=== PATIENT | male | born 1940 | race Caucasian/White ===

== ENCOUNTER → 2016-06-15 | Outpatient (CLI) | payer MEDICARE, BC ==
[2016-06-15 14:05] LABS: Basophils % (A) 0 %; CHCM 33.3; Eosinophils # (A) 0.2 k/uL (0-0.7); Eosinophils % (A) 2 %; HCT 38.7 % (39.0-53.0); HDW 2.69; HGB 12.6 gm/dL (13.0-17.5); Luc # (Auto) 0.24; Luc % (Auto) 3; Lymphocytes # (A) 1.5 k/uL (1.0-4.8); Lymphocytes % (A) 20 %; MCH 32.4 pg (25.0-35.0); MCHC 32.6 g/dL (31.0-37.0); MCV 99.5 fL (80.0-100.0); Mean Platelet Volume 10.1; Monocytes # (A) 0.3 k/uL (0-1.0); Monocytes % (A) 5 %; Neutrophils # (A) 5.1 k/uL (1.3-7.7); Neutrophils % (A) 69 %; RBC 3.88 m/uL (4.30-5.90); RDW 13.2 % (11.5-15.5); WBC 7.4 k/uL (3.8-10.6); WBC (Perox) 7.53
[2016-06-15 14:20] LABS: Anion Gap 9 mmol/L; Blood Urea Nitrogen 16 mg/dL (9-20); Calcium 9.4 mg/dL (8.4-10.2); Carbon Dioxide 30 mmol/L (22-30); Chloride 101 mmol/L (98-107); Glucose 193 mg/dL (74-99); Non-African American GFR(MDRD) >60 (>60 ml/min/1.73 sqM); Potassium 5.1 mmol/L (3.5-5.1); Sodium 140 mmol/L (137-145)
[2016-06-15 14:54] LABS: Hemoglobin A1C 9.1 % (4.2-6.1)
[2016-06-15 17:02] LABS: Erythrocyte Sedimentation Rate 13 mm/hr (0-15)
== END | disposition home or self-care (01) ==
LOC: LABWHC1 12:57
PROVIDERS: ATTEND Internal Medicine Infectious Disease
DX: E11.65 Type 2 diabetes mellitus with hyperglycemia (principal)
CPT/HCPCS: 36415; 80048; 83036; 85025; 85652

== ENCOUNTER → 2017-01-02 | Outpatient (CLI) | payer MEDICARE, BC ==
[2017-01-02 17:01] LABS: CH 33.8; CHCM 32.8; HCT 37.2 % (39.0-53.0); HDW 2.46; HGB 12.1 gm/dL (13.0-17.5); MCH 33.9 pg (25.0-35.0); MCHC 32.7 g/dL (31.0-37.0); MCV 103.7 fL (80.0-100.0); Macrocytosis Slight; Mean Platelet Volume 9.7; RBC 3.58 m/uL (4.30-5.90); RDW 14.1 % (11.5-15.5); WBC 7.4 k/uL (3.8-10.6)
[2017-01-02 17:10] LABS: Prothrombin Time 10.5 sec (9.0-12.0)
== END | disposition home or self-care (01) ==
LOC: LABWHC1 15:55
PROVIDERS: ATTEND Radiology Diagnostic Radiology
DX: M54.5 Low back pain (principal); G89.29 Other chronic pain
CPT/HCPCS: 36415; 85027; 85610; 85730

== ENCOUNTER → 2017-07-18 | Outpatient (CLI) | payer MEDICARE, BC ==
--- NOTE | 2017-07-18 16:11 | CONS ---
CONSULTATION REASON FOR CONSULTATION: Consultation note for obstructive sleep apnea. HISTORY OF PRESENT ILLNESS: 77-year-old male patient, a long time CPAP for obstructive sleep apnea. He is coming in for evaluation. His CPAP machine is broken and currently the patient is using his CPAP machine which is set at a pressure of 7. I am unable to retrieve his old records. I think he had his sleep study many years back through our sleep center. He is symptomatic, he stops breathing and he snores very loud while off treatment. He goes to bed around 1:00 am, wakes up at 9 a.m. in the morning. He averages in 7-8 hours of sleep. He does very well while on CPAP machine however after the treatment he becomes somnolent and sleepy. His current Erie Score is at 9. He claims to have lost weight and currently is down to 210. No other complaints otherwise for now. PAST MEDICAL HISTORY: 1. Obstructive sleep apnea. 2. Hard of hearing. The patient has got on the left. 3. Hyperlipidemia. 4. Diabetes mellitus. 5. Coronary disease with MN. 6. Sick sinus syndrome. 7. Hypertension. 8. Degenerative arthritis involving the spine. 9. Chronic obstructive pulmonary disease. SURGICAL HISTORY: Includes cardiac catheterization, insertion of multiple stents, back surgery, neck surgery, cholecystectomy and cochlea implant. DRUG ALLERGIES: MULTIPLE AND THIS INCLUDES IODINE KEFLEX AND AMOXICILLIN AND CIPRO AND LYRICA. OUTPATIENT MEDICATION LIST: Includes Advair Diskus, fish oil, Lipitor,baby aspirin, Toprol, Glucotrol, metformin and Lipitor. He is also on insulin exact type is not known. SOCIAL HISTORY: The patient is a nonsmoker. No history of alcohol. No history of IV drugs. He is retired right now. FAMILY HISTORY: Positive for coronary artery disease and heart problems in the mother and father of some auto immune disease. Brother has unknown cancer, thyroid cancer also runs in the family. Mother has thyroid cancer. REVIEW OF SYSTEMS: 12-point review of system was done. He has excessive fatigue and sleepiness off the treatment. He has no insomnia. Has no choking or gasping for air in the middle of the night. Some restlessness in lower extremities. Wakes up with dry mouth. No sleepwalking or sleep talking. No anxiety or panic attacks. No palpitation. No heartburn. No claustrophobia. No sexual dysfunction. No difficulty with concentration and memory. PHYSICAL EXAMINATION: BP is 110/44, pulse 62, respirations 16, temperature 97.6. Saturation is 97% on room air. Neck size 19.5 inches. BMI 34. GENERAL APPEARANCE: Calm, comfortable in no acute distress. Head is atraumatic, normocephalic. Neck is short, supple, crowding of posterior pharynx. Mallampati class IV. There is no goiter or neck masses. LUNGS: Diminished breath sounds bilaterally. HEART: Sounds regular rate and rhythm. Normal S1, S2. No S3, S4. No murmurs. ABDOMEN: Soft. No organomegaly. No rebound tenderness or guarding. Skin is negative for any wounds or ulceration. EXTREMITIES: No edema. No cyanosis or clubbing. NEUROLOGIC: Alert and oriented x3. There is no focal neurological deficits. PSYCHIATRIC: Negative for anxiety or depression. IMPRESSION: 1. Obstructive sleep apnea. The patient is coming in for evaluation. His current CPAP machine is broken. Unable to locate his previous sleep study as far as his baseline PSG. 2. Chronic obstructive pulmonary disease. 3. Coronary artery disease. Previous coronary intervention and stenting. 4. Hyperlipidemia. 5. Hypertension. 6. Diabetes mellitus. 7. Sick sinus syndrome. 8. Cochlea implant with impaired hearing bilaterally. 9. Degenerative arthritis involving the spine. PLAN: 1. Proceed with a split night to establish the presence of sleep apnea and its severity and proceed with the treatment accordingly. 2. Encourage further weight loss. 3. Tight control of cardiovascular risk factors. 4. We will continue to follow. MMODL / IJN: [id number] /
== END | disposition home or self-care (01) ==
LOC: SLEEP 14:52
PROVIDERS: ATTEND Internal Medicine Critical Care Medicine
DX: G47.33 Obstructive sleep apnea (adult) (pediatric) (principal); J44.9 Chronic obstructive pulmonary disease, unspecified; I25.10 Atherosclerotic heart disease of native coronary artery without angina pectoris; E78.5 Hyperlipidemia, unspecified; I10 Essential (primary) hypertension; E11.9 Type 2 diabetes mellitus without complications; I49.5 Sick sinus syndrome; H91.93 Unspecified hearing loss, bilateral; M47.9 Spondylosis, unspecified; Z96.21 Cochlear implant status; Z90.49 Acquired absence of other specified parts of digestive tract; Z88.1 Allergy status to other antibiotic agents; Z88.0 Allergy status to penicillin; Z91.041 Radiographic dye allergy status; Z95.5 Presence of coronary angioplasty implant and graft; Z79.84 Long term (current) use of oral hypoglycemic drugs; Z79.899 Other long term (current) drug therapy; Z79.82 Long term (current) use of aspirin; Z79.4 Long term (current) use of insulin; Z99.89 Dependence on other enabling machines and devices
CPT/HCPCS: 99211

== ENCOUNTER → 2018-01-18 | Outpatient (CLI) | payer MEDICARE, BC ==
--- NOTE | 2018-01-18 16:30 | PN ---
PROGRESS NOTE DATE OF SERVICE: 01/18/2018 This patient is a 77-year-old gentleman who has been followed in the sleep center for treatment of obstructive sleep apnea-hypopnea syndrome. Recently the patient had a diagnostic sleep study and CPAP titration and one split night protocol. After that he received his CPAP unit. His sleep apnea is in the severe range. After starting to use CPAP, he feels better; he sleeps better and feels better during the day. I checked his CPAP unit. CPAP pressure is 10 cm of water. Usage is 29/30 nights for more than 4 hours. Average usage is 7.7 hours. CPAP pressure is 10 cm of water. Leak is acceptable at 11 L/minute. AHI for the last month is only 2.7. MEDICATIONS: 1. Gabapentin. 2. Metoprolol. 3. Aspirin. 4. Metformin. 5. Atorvastatin. 6. . 7. Warfarin. 8. Insulin. PHYSICAL EXAMINATION: GENERAL: A pleasant patient in no distress. VITAL SIGNS: BP 134/56, HR 64, RR 16, weight 213, temperature 98.0, oxygen saturation at room air 96%. HEENT: PERRLA, EOMI. Evaluation of oropharynx showed tongue protrudes midline. Extremely low position of soft palate. NECK: Supple. No JVD. Thyroid is not palpable. LUNGS: Clear to percussion and to auscultation. Good air exchange. No wheezing or rhonchi. HEART: S1, S2 regular. No murmurs, gallops or rubs. ABDOMEN: Obese. EXTREMITIES: No clubbing or cyanosis. ABORIGINAL EDUCATION WORKER COORDINATOR: Awake, alert, and oriented X3. Cranial nerves 2 to 7 intact. There is no fasciculation or atrophy. noted. No focal deficits observed. IMPRESSION: 1. Obstructive sleep apnea-hypopnea syndrome in severe range. The patient demonstrated great compliance with treatment, benefitting from treatment. 2. Obesity. 3. Coronary artery disease. 4. History of chronic obstructive pulmonary disease. 5. Diabetes mellitus. 6. Hyperlipidemia. 7. History of sick sinus syndrome. 8. Hypertension. 9. Impaired hearing. PLAN: 1. Patient will continue to use CPAP equipment every night for the whole night. 2. Losing weight. 3. Sleep hygiene with regular time in bed for at least 8 hours. 4. No driving if feeling any sleepiness. 5. We will maintain prescription for all necessary CPAP supplies. Thank you very much for allowing me to participate in the management of your patient. Sincerely, Bubba Christopher MD, PhD, FAASM Diplomat of [employer] Rep[employer]r of [facility] [place] RAFFI / LATA: [id number] /
== END | disposition home or self-care (01) ==
LOC: SLEEP 14:38
PROVIDERS: ATTEND Internal Medicine
DX: G47.33 Obstructive sleep apnea (adult) (pediatric) (principal); E66.9 Obesity, unspecified; I25.10 Atherosclerotic heart disease of native coronary artery without angina pectoris; J44.9 Chronic obstructive pulmonary disease, unspecified; E11.9 Type 2 diabetes mellitus without complications; E78.5 Hyperlipidemia, unspecified; I10 Essential (primary) hypertension; H91.90 Unspecified hearing loss, unspecified ear; Z86.79 Personal history of other diseases of the circulatory system; Z79.82 Long term (current) use of aspirin; Z79.84 Long term (current) use of oral hypoglycemic drugs; Z79.01 Long term (current) use of anticoagulants; Z79.4 Long term (current) use of insulin; Z99.89 Dependence on other enabling machines and devices

== ENCOUNTER → 2018-07-25 | Outpatient (CLI) | payer MEDICARE, BC ==
--- NOTE | 2018-07-25 15:53 | CT ---
EXAMINATION TYPE: CT cervical spine wo con DATE OF EXAM: 07/25/2018 COMPARISON: NONE HISTORY: Cervicalgia per order. Presurgical imaging. CT DLP: 854 mGycm. Automated Exposure Control for Dose Reduction was Utilized. TECHNIQUE: CT scan of the cervical spine is obtained without contrast, axial images are obtained, sa gittal and coronal reformatted images are also reviewed. FINDINGS: Cervical spine is visualized in its entirety from C1 through upper thoracic levels, demonst rates reversal of normal cervical curvature without evidence of acute fracture or dislocation. Preve rtebral soft tissue appears within normal limits. The C1-C2 articulation is within normal limits on the coronal images. Anterior fusion plate running from to superior C3 level with inferior screws posi tioned at level C6-C7 disc space is identified. There is vertical vertebral surgical hardware running from inferior C3 level through the inferior C6 vertebral body level. Some ossific fusion at this lev el is present. Large anterior spurring C2-C3 level is seen. There is moderate disc space narrowing C7 -T1 level. There is moderate disc space narrowing and anterior spurring at T1-T2 and T2-T3 levels. Po sterior burning or osteophyte superior C6 level sagittal image 38 and axial image 51 effaces anterior thecal sac. No large posterior osteophyte into spinal canal are otherwise identified. Review of axial images shows severe left greater than right bilateral neural foraminal narrowing due to uncovertebral facet spurring at C3-C4 level axial image 35. There is moderate to severe bilateral neural foraminal narrowing due to uncovertebral facet spurring at C4-C5 level axial image 42. There i s [id number] right right and mild left-sided neural foraminal narrowing at C5-C6 level due to u ncovertebral facet spurring. There is mild left-sided neural foraminal narrowing C6-C7 level axial im age 54 due to uncovertebral facet spurring. Bilateral uncovertebral facet spurring C7-T1 level is not ed axial image 64. Severe calcified plaque centered near bilateral carotid bulbs is present. There is background moderat e underlying emphysematous change. IMPRESSION: As above.
== END | disposition home or self-care (01) ==
LOC: RADCTMAIN 14:15
PROVIDERS: ATTEND Neurological Surgery
DX: M48.02 Spinal stenosis, cervical region (principal); M99.71 Connective tissue and disc stenosis of intervertebral foramina of cervical region
CPT/HCPCS: 72125

== ENCOUNTER → 2018-08-15 | Outpatient (CLI) | payer MEDICARE, BC ==
--- NOTE | 2018-08-15 16:05 | US ---
EXAMINATION TYPE: US carotid duplex BILAT DATE OF EXAM: 08/15/2018 COMPARISON: CT CLINICAL HISTORY: I65.29 Bilateral Carotid Stenosis. Calcifications seen on CT Large pt body habits, thick, short neck/ Difficult to scann EXAM MEASUREMENTS: RIGHT: Peak Systolic Velocity (PSV) cm/sec ----- Right CCA: 70.3 ----- Right ICA: 144.7 ----- Right ECA: 141.1 ICA/CCA ratio: 2.1 RIGHT: End Diastole cm/sec ----- Right CCA: 17.1 ----- Right ICA: 44.6 ----- Right ECA: 15.0 LEFT: Peak Systolic Velocity (PSV) cm/sec ----- Left CCA: 56.7 ----- Left ICA: 258.7 ----- Left ECA: 156.0 ICA/CCA ratio: 4.6 LEFT: End Diastole cm/sec ----- Left CCA: 12.5 ----- Left ICA: 52.8 ----- Left ECA: 9.0 VERTEBRALS (direction of flow): Right Vertebral: Antegrade Left Vertebral: Antegrade Rhythm: Normal Elevated velocities bilaterally, more on left side with abnormal ratio on left Grayscale, color Doppler, spectral Doppler imaging performed of the carotid arteries. Waveform analys is shows findings compatible with stenosis of the proximal internal carotid arteries bilaterally. IMPRESSION: Hemodynamic significant stenosis of the proximal internal carotid artery on the right co rresponding to what is likely 50-69% diameter reduction. Hemodynamic significant stenosis of the prox imal internal carotid artery on the left corresponding to what is likely approximately at least 60% d iameter reduction and possibly 70% diameter reduction by Doppler criteria, an indirect measurement of carotid stenosis, consider carotid CTA Criteria for Assigning % of Stenosis / Diameter reduction (Estimation based on the indirect measurements of the internal carotid artery velocities (ICA PSV). 1. Normal (no stenosis)=ICA PSV < 125 cm/s: ratio < 2.0: ICA EDV<40 cm/s. 2. Less than 50% stenosis=ICA PSV < 125 cm/s: ratio < 2.0: ICA EDV<40 cm/s. 3. 50 to 69% stenosis=ICA PSV of 125 to 230 cm/s: ration 2.0 ? 4.0: ICA EDV 40-100 cm/s. 4. Greater than 70% stenosis to near occlusion= ICA PSV > 230 cm/s: ratio > 4.0: ICA EDV > 100 cm/s. 5. Near occlusion= ICA PSV velocities may be low or undetectable: variable ratio and ICA EDV. 6. Total occlusion=unable to detect flow.
== END | disposition home or self-care (01) ==
LOC: RADUSWWP 15:05
PROVIDERS: ATTEND Family Medicine
DX: I65.23 Occlusion and stenosis of bilateral carotid arteries (principal)
CPT/HCPCS: 93880

== ENCOUNTER → 2018-10-05 | Day surgery (SDC) | payer MEDICARE, BC ==
[~2018-10-05] MED LIST: DIAZEPAM 5 MG TAB PO STA; HYDROcodone/APAP 5-325MG 1 EACH TAB PO PRN; PREMYELOGRAM MEDICATION REVIEW 1 EACH MISC PO NR
[2018-10-05 08:51] LABS: Mean Platelet Volume 8.8; Platelet Count 179 k/uL (150-450)
[2018-10-05 08:56] LABS: Prothrombin Time 10.9 sec (9.0-12.0)
[2018-10-05 09:16] VITALS: TEMP 97.5
--- NOTE | 2018-10-05 12:32 | CT ---
EXAMINATION TYPE: CT cervical spine w con DATE OF EXAM: 10/05/2018 COMPARISON: CT cervical spine July 25, 2018 HISTORY: Neck pain per order. CT DLP: 1376 mGycm. Automated Exposure Control for Dose Reduction was Utilized. TECHNIQUE: CT scan of the cervical spine is obtained after intrathecal injection of contrast, axial images are obtained, sagittal and coronal reformatted images are also reviewed. A total of 15 cc of O mnipaque 200 was injected into the lumbar spinal canal under fluoroscopic guidance. FINDINGS: There is successful contrast opacification of the cervical spinal canal. There is redemonst ration of reversal of normal cervical curvature. There is redemonstration of anterior fusion plate be ginning superior C3 level with inferior screws positioned at level of C6-C7 disc space. Vertical surg ical hardware redemonstrated inferior C3 level through the inferior C6 vertebra with some ossific fus ion. There is moderate spurring and disc space narrowing C7-T1 level extending in proper thoracic spi ne. Large anterior spur C2-C3 level redemonstrated. C1-C2 articulation on coronal images satisfactory . Some posterior spurring or bony formation effaces the anterior thecal sac at several levels along s ite of surgery. Axial images C2-C3 levels show calcified small disc protrusion mildly effacing the anterior thecal sa c, bilateral neural foramina are patent on axial image 33. Axial images at the C3-C4 level show posterior spurring effacing the anterior thecal sac up to ventra l surface of the spinal cord with advanced bilateral neural foraminal narrowing. Axial images at C4-C5 level show right paracentral spurring effacing the anterior thecal sac and mild to moderate left greater than right bilateral neural foraminal narrowing. Axial images at C5-C6 level which demonstrate large posterior spur efface the anterior thecal sac up to ventral surface of spinal cord axial image 52 series 5, there is mild bilateral neural foraminal n arrowing due to marginal spurring. Axial images at C6-C7 level show prominent left paracentral spur bony projection efface the anterior thecal sac of the ventral surface of spinal cord axial image 57 series 5 with mild left-sided neural foraminal narrowing due to marginal spurring. Axial images at C7-T1 level show right paracentral bony projection efface ventral thecal sac on image 69, bilateral neural foramina are patent. There is partial visualization of pacemaker wires in the left upper thorax. There is fairly severe ca lcified plaque at the level bilateral carotid bulbs. Background mild to moderate emphysematous change is redemonstrated. IMPRESSION: Improved visualization of structures with myelogram. Multilevel neural foraminal narrowi ng redemonstrated not as pronounced as suspected on myelogram study. Overall no significant change fr om recent CT.
--- NOTE | 2018-10-05 12:36 | FL ---
EXAMINATION TYPE: FL myelogram cervical DATE OF EXAM: 10/05/2018 CLINICAL HISTORY: Cervicalgia. TECHNIQUE: Fluoroscopic assisted myelogram. A total of 3.37 minutes of fluoroscopic time was utilized during procedure. 3 spot images are saved. COMPARISON: None. FINDINGS: Fluoroscopic guidance was provided during lumbar spine myelogram procedure performed by Dr Paxton Coleman. Procedure was explained to patient. Benefits, risks, and alternatives were discussed. Inform ed consent was obtained. Overlying skin is cleansed with Betadine. Lidocaine is used as local anesthetic. Patient has a track superintendent ior interpedicular rods and screws L1-L4 level bilaterally. First attempt was unsuccessful in obtaini ng access to spinal canal. Second site L3 level using slight paraspinal approach is successful with s naveen needle. At this 15 cc of Isovue M2 100 instilled into the spinal canal. Needle is withdrawn. X- ray documents successful contrast opacification. Patient put into reverse Trendelenburg position with flexed head to get contrast to move cranially to cervical level. Patient tolerated procedure well without any immediate complication. Patient taken to CAT scan. This report will be dictated separately. Vital signs monitored before during and after procedure. Patient stayed for short time after procedure and CT scan and subsequently discharged home in stable conditio n. IMPRESSION: As Above. Successful fluoroscopic assisted myelogram for CT study.
[2018-10-05 16:34] VITALS: RESP 16
[2018-10-05 16:53] VITALS: BP 151/79; PULSE 60
== END ==
LOC: RADPROMAIN 08:12
PROVIDERS: ATTEND Neurological Surgery
DX: M48.02 Spinal stenosis, cervical region (principal); M50.21 Other cervical disc displacement, high cervical region; Z98.1 Arthrodesis status
CPT/HCPCS: 82947; 85049; 85610; 36415; 62302; 72126; Q9966; 62284

== ENCOUNTER 2020-08-28 07:03 | Day surgery (SDC) | payer BC, MEDICARE ==
[2020-08-25 14:13] VITALS: BMI 31.3
[~2020-08-28 07:03] MED LIST changes: -DIAZEPAM 5 MG TAB PO STA; -HYDROcodone/APAP 5-325MG 1 EACH TAB PO PRN; +LACTATED RINGERS 1,000 ML IV SCH; -PREMYELOGRAM MEDICATION REVIEW 1 EACH MISC PO NR
[2020-08-28 07:40] VITALS: RESP 16; TEMP 98
[2020-08-28] MEDS ORDERED: LIDOCAINE 1% (10MG/ML) FOR IV START INTRADERMA ONE (07:44)
[2020-08-28 07:53] LABS: Glucose,Whole Blood 83 mg/dL (75-99)
[2020-08-28] MEDS ORDERED: LIDOCAINE 1% INJ 10MG/ML (20 ML MDV) ONE (07:54)
[2020-08-28] MEDS ORDERED: PROPOFOL 10 MG/ML 20 ML VIAL IV ONE (07:54)
--- NOTE | 2020-08-28 08:08 | P.GSHP ---
History of Present Illness H&P Date: 08/28/20 Chief Complaint: Rectal bleeding This 80-year-old male who's had some complaints of rectal bleeding. Patient has known hemorrhoids. He presents today for colonoscopy. Past Medical History Past Medical History: Coronary Artery Disease (CAD), Chest Pain / Angina, COPD, Diabetes Mellitus, GERD/Reflux, Hearing Disorder / Deafness, Hyperlipidemia, Myocardial Infarction ([place]), Osteoarthritis (OA), Skin Disorder, Sleep Apnea/CPAP/BIPAP Additional Past Medical History / Comment(s): arrhythmia, diverticulosis, hiatal hernia, psoriasis, cochlear implants, numbness in hands with carpal tunnel , has cpap, due to neck surgery has limited movement of neck Last Myocardial Infarction Date:: 1992 History of Any Multi-Drug Resistant Organisms: None Reported Past Surgical History: Appendectomy, Back Surgery, Cholecystectomy, Heart Catheterization With Stent, Orthopedic Surgery, Pacemaker Additional Past Surgical History / Comment(s): 8 stents, angioplasty, cataracts,laser surgery eyes, neck surgery-has plate, spinal rods inserted, rt arm surgery Past Anesthesia/Blood Transfusion Reactions: No Reported Reaction Date of Last Stent Placement:: 2014 Type of Cardiac Device: Permanent Pacemaker Device Placement Date:: 2012 Smoking Status: Never smoker - Past Family History Mother Family Medical History: Cancer Medications and Allergies Home Medications Medication Instructions Recorded Confirmed Type Fish Oil/Dha/Epa [Fish Oil 1,200 1 tab PO DAILY 05/28/14 08/25/20 History mg Fish Oil] Fluticasone/Salmeterol [Advair 1 puff INHALATION HS 05/28/14 08/25/20 History 500-50 Diskus] Gabapentin 600 mg PO BID 05/28/14 08/25/20 History Metoprolol Succinate [Toprol XL] 50 mg PO BID 05/28/14 08/25/20 History glipiZIDE [Glucotrol] 5 mg PO DAILY 05/28/14 08/25/20 History Atorvastatin [Lipitor] 80 mg PO HS #90 tab 12/09/14 08/25/20 Rx Nitroglycerin Sl Tabs [Nitrostat] 0.4 mg SUBLINGUAL Q5M PRN #25 tab 12/09/14 08/25/20 Rx metFORMIN HCL [Glucophage] 850 mg PO BID #0 12/09/14 08/25/20 Rx Warfarin [Coumadin] 5 mg PO MOTUWEFRSA 09/26/18 08/25/20 History diphenhydrAMINE [Benadryl] 50 mg PO DIRECTED PRN 09/26/18 08/25/20 History predniSONE 50 mg PO DIRECTED PRN 09/26/18 08/25/20 History Albuterol Nebulized [Ventolin 2.5 mg INHALATION DAILY PRN 08/25/20 08/25/20 History Nebulized] Aspirin 81 mg PO DAILY 08/25/20 08/25/20 History Cholecalciferol [Vitamin D3 (25 25 mcg PO DAILY 08/25/20 08/25/20 History Mcg = 1000 Iu)] Ferrous Sulfate [Feosol] 325 mg PO DAILY 08/25/20 08/25/20 History Insulin Degludec [Tresiba] 12 units SQ HS 08/25/20 08/25/20 History Levothyroxine Sodium 25 mcg PO DAILY 08/25/20 08/25/20 History Multivitamins, Thera [Multivitamin 1 tab PO DAILY 08/25/20 08/25/20 History (formulary)] Pantoprazole Sodium [Protonix] 40 mg PO DAILY 08/25/20 08/25/20 History Pioglitazone [Actos] 15 mg PO DAILY 08/25/20 08/25/20 History Semaglutide [Ozempic] 0.25 mg SQ TH 08/25/20 08/25/20 History Warfarin [Coumadin] 2.5 mg PO SUTH 08/25/20 08/25/20 History Allergies Allergy/AdvReac Type Severity Reaction Status Date / Time amoxicillin Allergy Rash/Hives Verified 08/28/20 07:31 ampicillin Allergy Rash/Hives Verified 08/28/20 07:31 cephalexin monohydrate Allergy Rash/Hives Verified 08/28/20 07:31 [From Keflex] ciprofloxacin [From Cipro] Allergy Rash/Hives Verified 08/28/20 07:31 ciprofloxacin HCl Allergy Rash/Hives Verified 08/28/20 07:31 [From Cipro] Iodinated Contrast Media Allergy Rash/Hives Verified 08/28/20 07:31 [Iodinated Contrast Media - IV Dye] levofloxacin [From Levaquin] Allergy Rash/Hives Verified 08/28/20 07:31 Penicillins Allergy Dyspnea Verified 08/28/20 07:31 pregabalin [From Lyrica] Allergy Rash/Hives Verified 08/28/20 07:31 vancomycin Allergy Dyspnea Verified 08/28/20 07:31 Surgical - Exam Vital Signs Temp Pulse Resp BP Pulse Ox 98.0 F 81 16 150/66 99 08/28/20 07:38 08/28/20 07:38 08/28/20 07:38 08/28/20 07:38 08/28/20 07:38 - General well developed, well nourished, no distress - Eyes PERRL - ENT normal pinna - Neck no masses - Respiratory normal expansion - Cardiovascular Rhythm: regular - Abdomen Abdomen: soft, non tender Assessment and Plan Assessment: Rectal bleeding. We'll perform colonoscopy.
--- NOTE | 2020-08-28 08:21 | P.OP ---
Date of Procedure: 08/28/20 Preoperative Diagnosis: Rectal bleeding Postoperative Diagnosis: External hemorrhoids Severe diverticulosis Poor Colonic prep Procedure(s) Performed: Colonoscopy Anesthesia: MAC Surgeon: Fercho Bolanos Pathology: none sent Condition: stable Disposition: PACU Description of Procedure: The patient's placed on the endoscopy table in the lateral position. He received IV sedation. Digital rectal exam performed which revealed external hemorrhoids. Flexible colonoscope was then placed patient anus and passed throughout the colon. Scope passed in the left colon secondary to poor colonic prep. There was a large amount of solid stool the colon. This was withdrawn. The descending colon had some scattered diverticula. In the sigmoid colon there is extensive diverticular disease. There is no evidence of bleeding. Scope was brought back the rectum a sternal presents with anus and there is external hemorrhoids noted. Is present in the patient's rectal bleeding is due to hemorrhoids or diverticulosis. There was no active bleeding at this time.
[2020-08-28 08:38] VITALS: BP 131/80; PULSE 78
== END 2020-08-28 09:09 | disposition home or self-care (01) ==
LOC: ORWHC2ENDO 07:03
PROVIDERS: ATTEND Surgery
DX: K62.5 Hemorrhage of anus and rectum (principal); K57.90 Diverticulosis of intestine, part unspecified, without perforation or abscess without bleeding; K64.4 Residual hemorrhoidal skin tags; I25.10 Atherosclerotic heart disease of native coronary artery without angina pectoris; J44.9 Chronic obstructive pulmonary disease, unspecified; K21.9 Gastro-esophageal reflux disease without esophagitis; E78.5 Hyperlipidemia, unspecified; I25.2 Old myocardial infarction; M19.90 Unspecified osteoarthritis, unspecified site; G47.33 Obstructive sleep apnea (adult) (pediatric); I10 Essential (primary) hypertension; Z95.5 Presence of coronary angioplasty implant and graft; E11.9 Type 2 diabetes mellitus without complications; Z79.899 Other long term (current) drug therapy; Z79.01 Long term (current) use of anticoagulants; Z95.0 Presence of cardiac pacemaker; Z88.0 Allergy status to penicillin; Z88.1 Allergy status to other antibiotic agents; Z91.041 Radiographic dye allergy status; L40.9 Psoriasis, unspecified; Z98.890 Other specified postprocedural states
CPT/HCPCS: 45378; J2001; J2704

== ENCOUNTER → 2021-06-11 | Outpatient (CLI) | payer MEDICARE ==
--- NOTE | 2021-06-11 11:02 | CT ---
EXAMINATION TYPE: CT shoulder LT wo con DATE OF EXAM: 06/11/2021 COMPARISON: None HISTORY: left prox humerus fx CT DLP: 505 mGycm Automated exposure control for dose reduction was used. FINDINGS: Postsurgical change involving the cervical spine and cardiac device is incidentally noted. There is d ense atherosclerotic change of the left common carotid artery with possible significant stenosis bre mmend correlation with ultrasound. Emphysematous changes involving the lung field. Atherosclerotic ch edwige of the visualized aorta. Artifact from the cardiac device does obscure portions of the shoulder. However, there is a comminute d displaced fracture of the proximal diaphysis of the humerus with significant displacement. The dist al fragment lies anterior to the proximal fragment. Arthropathy of the AC joint noted. Remaining osse ous structures intact. IMPRESSION: 1. COMMINUTED DISPLACED PROXIMAL DIAPHYSEAL HUMERAL NECK FRACTURE. 2. FINDINGS ARE SUGGESTIVE OF A SIGNIFICANT STENOSIS INVOLVING THE LEFT COMMON CAROTID ARTERY. PRIOR ULTRASOUND OF 08/15/2018 DOES DEMONSTRATE EVIDENCE OF A STENOSIS. FOLLOW-UP ULTRASOUND RECOMMENDED TO ASSESS FOR PROGRESSION.
== END | disposition home or self-care (01) ==
LOC: RADCTMAIN 09:32
PROVIDERS: ATTEND Orthopaedic Surgery
DX: S42.292A Other displaced fracture of upper end of left humerus, initial encounter for closed fracture (principal); M25.522 Pain in left elbow; X58.XXXA Exposure to other specified factors, initial encounter

== ENCOUNTER → 2023-03-14 | Day surgery (SDC) | payer MEDICARE ==
[~2023-03-14] MED LIST changes: +ALPRAZolam 0.25 MG TAB PO PRN; +ALPRAZolam 0.5 MG TAB PO PRN; +ASPIRIN 325 MG TAB PO ONE; +HEPARIN SODIUM 1,000 UN/ML (10ML VL) ONE; +IOPAMIDOL-300 100ML BTL INJ ONE; -LACTATED RINGERS 1,000 ML IV SCH; +LIDOCAINE 2% (PF) 20 MG/ML 5 ML VIAL SQ ONE; +MIDAZOLAM 2 MG/2 ML VIAL IVP ONE; +NITROGLYCERIN 1000MCG/10ML SYRINGE INTRACORON ONE; +NITROGLYCERIN SL TABS 0.4 MG TAB SUBLINGUAL ONE; +NITROGLYCERIN SL TABS 0.4 MG TAB SUBLINGUAL PRN; +SODIUM CHLORIDE 0.9% 1,000 ML IV ONE; +SODIUM CHLORIDE 0.9% 1,000 ML IV SCH; +SODIUM CHLORIDE 0.9% 1,000 ML in EMPTY BAG 1 BAG IV SCH
[2023-03-14 09:37] LABS: Glucose,Whole Blood 255 mg/dL (70-110)
[2023-03-14 09:41] LABS: Basophils % (A) 0 %; Eosinophils # (A) 0.2 k/uL (0-0.7); Eosinophils % (A) 2 %; HGB 10.9 gm/dL (13.0-17.5); Hypochromasia Slight; Lymphocytes # (A) 1.2 k/uL (1.0-4.8); Lymphocytes % (A) 12 %; MCH 34.8 pg (25.0-35.0); MCV 105.3 fL (80.0-100.0); Macrocytosis Slight; Mean Platelet Volume 11.9; Monocytes # (A) 0.5 k/uL (0-1.0); Monocytes % (A) 5 %; Neutrophils # (A) 8.3 k/uL (1.3-7.7); Neutrophils % (A) 81 %; Platelet Count 157 k/uL (150-450); RBC 3.13 m/uL (4.30-5.90); WBC 10.2 k/uL (3.8-10.6)
[2023-03-14 09:52] LABS: INR 1.2 (<1.2); Prothrombin Time 13.2 sec (10.0-12.5)
[2023-03-14 10:00] VITALS: RESP 16; TEMP 97.8
[2023-03-14 10:00] LABS: African American GFR (CKD) 45 (>60 ml/min/1.73 sqM); Anion Gap 19 mmol/L; Blood Urea Nitrogen 29 mg/dL (9-20); Calcium 9.4 mg/dL (8.4-10.2); Carbon Dioxide 23 mmol/L (22-30); Chloride 97 mmol/L (98-107); Glucose 265 mg/dL (74-99); Non-African American GFR(CKD) 39 (>60 ml/min/1.73 sqM); Sodium 139 mmol/L (137-145)
[2023-03-14] MEDS: VERAPAMIL SYRINGE (5 MG/10 ML) INTRAARTER ONE ×2 (10:49→11:12)
[2023-03-14] MEDS: HEPARIN SODIUM 1,000 UN/ML (10ML VL) IVP ONE ×2 (10:51→11:02)
[2023-03-14 13:39] VITALS: BP 161/67; PULSE 71
--- NOTE | 2023-03-14 21:50 | CC ---
CARDIAC CATHETERIZATION REPORT PROCEDURE PERFORMED: 1. Left heart catheterization and coronary angiography. 2. IFR assessment of proximal circumflex coronary artery. PERFORMED BY: Dr. Dana Melendez. ANESTHESIA: Moderate conscious sedation time was 30 minutes. Patient was given Versed, oxygen saturation, hemodynamics, and EKG were monitored closely. CLINICAL INFORMATION: Mr. Matos is an 82-year-old gentleman with a known history of CAD with multivessel PCI. In November 2014, I performed stenting of mid LAD with a drug-eluting stent. Prior to that in May, I performed stenting of right coronary artery in the midportion and proximal RCA was stented in 2001 and circumflex was also stented in the proximal portion in 2002. Last stent was therefore of the LAD. At that time, the circumflex and RCA stents were patent. He has hypertension, type 2 diabetes, chronic kidney disease with a creatinine of 1.5 to 1.6 and paroxysmal atrial fib on Coumadin. He was advised cardiac catheterization because of symptoms of angina and previous abnormal stress test with apical lateral reversibility. The risks, benefits, options, and rationale were explained. PROCEDURE NOTE: Under local anesthesia and strict aseptic precautions, a 6-Mongolian introducer was placed in the right radial artery. I used a JL3.5 and JR4 catheters. With this I performed coronary angiography and the same right catheter was used to check LV pressures, but LV- gram was not performed. The patient has a sick sinus syndrome with dual-chamber pacemaker as well. Following coronary angiography, I noted that he had a significant lesion in the proximal circumflex as it took off from the left main. I proceeded to perform IFR of this vessel. The patient received 5500 units of intravenous heparin. I used a JL3.5 guide catheter of 6-Mongolian caliber and an FFR wire. Wire was appropriately zeroed and normalized and then wire was kept in the mid to distal circumflex. IFR was performed, 3 readings were checked and these were 0.95, 0.96, and 0.95. This suggested that the circumflex lesion was not significant. The wires were taken out, catheter was taken out, TR band applied, and the patient was sent to the room in stable condition. Results were discussed with the patient's and daughter. We will pursue medical therapy with risk factor modification. CARDIAC CATHETERIZATION FINDINGS: The left ventricular end-diastolic pressure was about 10 mmHg without any gradient across the aortic valve. CORONARY ANGIOGRAPHY FINDINGS: Right Coronary Artery: Codominant vessel proximally, widely patent at the site of proximal stent. The mid stent is also patent. Beyond the mid stent, there is about a 40% narrowing which does not appear to be significant similar to the previous angiogram performed in 2015. Left Main Coronary Artery: This is a short patent vessel that immediately bifurcates into LAD and circumflex. Left main itself is free of significant disease. Left Anterior Descending Coronary Artery: Good caliber vessel extends along the anterior wall. There is about a 40% narrowing in the proximal LAD. Mid LAD that was stented is widely patent with brisk flow. Entire LAD has mild diffuse disease and 40% lesion in the probe in the proximal portion, but no significant disease. Stented segment is widely patent. Left Posterior Circumflex Coronary Artery: This is technically a codominant vessel which gives off a large obtuse marginal. The mid circumflex and obtuse marginal are widely patent. Distally, the branches have mild diffuse disease. Proximally in the circumflex vessel as it comes off from the left main there is about 50% to 60% narrowing. I recommended IFR of this vessel. Left ventriculogram was not performed. FINAL IMPRESSION: This patient has normal filling pressures, no gradient, a codominant system. RCA that was stented is widely patent with a 40% mid lesion. LAD in the midportion that was stented is widely patent with a proximal 40% lesion. Circumflex proximally has 50% to 55% lesion. The stented segment in the obtuse marginal is widely patent. RECOMMENDATIONS: I recommended IFR of circumflex coronary artery. IFR PROCEDURE DETAILS: I used a JL3.5 guide catheter to cannulate the left coronary artery and used an IFR wire. After appropriate zeroing and normalization, IFR measurement was taken, average was 0.95. No significant lesion. Therefore, we will pursue medical therapy. The patient tolerated the procedure well. MMODL / IJN: [id number] /
== END ==
LOC: CATHCVL 09:10
PROVIDERS: ATTEND Internal Medicine Interventional Cardiology
DX: I25.10 Atherosclerotic heart disease of native coronary artery without angina pectoris (principal); I12.9 Hypertensive chronic kidney disease with stage 1 through stage 4 chronic kidney disease, or unspecified chronic kidney disease; E11.22 Type 2 diabetes mellitus with diabetic chronic kidney disease; I48.0 Paroxysmal atrial fibrillation; J44.9 Chronic obstructive pulmonary disease, unspecified; F17.210 Nicotine dependence, cigarettes, uncomplicated; Z79.01 Long term (current) use of anticoagulants; Z95.5 Presence of coronary angioplasty implant and graft; Z91.040 Latex allergy status; Z79.899 Other long term (current) drug therapy
CPT/HCPCS: 93458; 80048; 85025; 85610; C1887; C1769 ×2; C1894; J2250; J1644; Q9967; J2001; J2305

== ENCOUNTER → 2024-10-15 | Outpatient (CLI) | payer MEDICARE ==
--- NOTE | 2024-10-15 13:46 | CT ---
EXAMINATION TYPE: CT brain wo con CT DLP: 1192.4 mGycm, Automated exposure control for dose reduction was used. DATE OF EXAM: 10/15/2024 1:39 PM COMPARISON: None. CLINICAL INDICATION:Male, 84 years old with history of R41.3 AMNESIA R45.86 EMOTIONAL LABILITY, Amnes ia and memory instability. TECHNIQUE: Brain: Multiple axial CT images of the brain were obtained without IV contrast. . Coronal and sagitta l reformats reviewed. FINDINGS: Brain: Extra-axial spaces: No abnormal extra-axial fluid collections. Ventricular system: Dilatation in proportion to cerebral atrophy. Cerebral parenchyma: Age appropriate mild to moderate cerebral atrophy. No acute intraparenchymal hem orrhage or mass effect. The smith-white junction is well differentiated. Scattered hypoattenuating ar eas are seen within the periventricular white matter. Cerebellum: Unremarkable. Mass effect: No evidence of midline shift. Intracranial vasculature: Atherosclerotic calcifications of the intracranial vessels. Soft tissues: Normal. Calvarium/osseous structures: No depressed skull fracture. Paranasal sinuses and mastoid air cells: The paranasal sinuses are clear. Post surgical changes of th e bilateral mastoids with implanted hearing devices. This creates streak artifact which limits evalua tion. Visualized orbits: Bilateral aphakia IMPRESSION: 1. No acute intracranial process. 2. Nonspecific mild white matter changes, likely secondary to chronic small vessel ischemic disease. [facility], , 10/15/2024 1:44 PM
== END | disposition home or self-care (01) ==
LOC: RADCTMAIN 12:56
PROVIDERS: ATTEND Family Medicine
DX: R41.3 Other amnesia (principal); R45.86 Emotional lability; R90.82 White matter disease, unspecified
CPT/HCPCS: 70450